=== PATIENT | male | born 1945 | race Caucasian/White ===

== ENCOUNTER → 2019-06-16 | Day surgery (SDC) | payer OTHER ==
[~2019-06-16] MED LIST: ACETAMINOPHEN 325 MG TABLET PO PRN; ACETYLCHOLINE CHLORIDE 1:100 20 MG/2 ML INTRAOCULAR KIT. IO ONE; ALBUTEROL SULFATE 2.5 MG/3 ML NEBU. NEB PRN; ATROPINE 0.5 MG/5 ML DISP.SYRIN. IV PRN; BALANCED SALT IRRIG OPHTH SOLN 15 ML BOTTLE. IRR ONE; CATARACT OPHTH GEL 0.5 ML SYRINGE. OS ONE; CHONDROIT-SOD-HYALURONATE KIT. OS ONE; EPINEPHrine AMPULE 0.5 MG in BALANCED SALT IRRIG SOLN PLUS 500 ML IO ONE; ERYTHROMYCIN 0.5% OPHTH OINTMENT 1GM TUBE. OS ONE; HYALURONATE SODIUM 20 MG/2 ML SYRINGE. ONE; HYALURONIDASE 75UNITS in LIDOCAINE 2% PF OPHTH 10 ML SYRINGE. OS ONE; IV RINGERS SOLUTION,LACTATED 1,000 ML IV SCH; KETO5DRO LEFTEYE; KETOROLAC TROMETHAMINE 0.5% OPHTH SOLUTION BOTTLE. OS SCH; LIDO/EPI IN BSS OPHTH 8 ML SYRINGE OS ONE; LOSA50TA86 PO; MOXI3DRO18 LEFTEYE; MOXIFLOXACIN 0.5% OPHTH SOLUTION 3ML BOTTLE. OS SCH; ONDANSETRON PF 4 MG/2 ML VIAL. IV PRN; POVIDONE-IODINE 5% OPHTH SOLUTION 30ML BOTTLE. OS ONE; PRED5DRO20 OD; PRED5DRO20 OS; PROPOFOL 20 ML IV ONE; RIVA20TA2 PO; SIMV40TA18 PO; TETRACAINE 0.5% OPHTH SOLUTION 4ML BOTTLE. OS ONE; TETRACAINE 0.5% OPHTH SOLUTION 4ML BOTTLE. OU ONE; diphenhydrAMINE 50 MG/ML VIAL IV PRN; prednisoLONE ACETATE 1% OPHTH SUSPENSION 5ML BOTTLE. ONE; prednisoLONE ACETATE 1% OPHTH SUSPENSION 5ML BOTTLE. OS SCH
[2019-06-16] MEDS: MOXIFLOXACIN 0.5% OPHTH SOLUTION 3ML BOTTLE. OS SCH ×3 (06:38→06:53)
--- NOTE | 2019-06-16 08:34 | PDOC4 ---
CATARACT Operative Report DATE DATE: 06/16/19 TIME: 08:28 Operation Performed Operative Report Name: Armani Dominguez Operation Date: @TD@ Preoperative Diagnosis: 1. Senile cataract, LEFT: eye. 2. Anticipated intraoperative floppy iris syndrome, LEFT: eye. Postoperative Diagnosis: 1. Senile cataract, LEFT: eye. 2. Intraoperative floppy iris syndrome, LEFT:eye. Operation: 1. Phacoemulsification with posterior chamber intraocular lens implant. Surgeon: Arthur Alford D.O. Anesthesia: Local with monitored anesthesia care. Description of Operation: With cardiac monitoring and intravenous sedation, the patient received peribulbar anesthesia in the holding area. Pressure was applied to the eye with a [place] balloon for approximately 10 minutes. The patient was taken to the operating room and placed in a supine position. The periorbital region was prepped and draped in the usual sterile fashion. A lid speculum was placed between the eyelids. The patient was positioned under the microscope. A temporal clear corneal incision was made with a keratome. Due to poor dilation, 1 cc of epi-Shugarcaine was injected into the anterior chamber. Viscoelastic was then injected into the eye. A side port incision was made three clock hours to the left of the clear corneal incision. A cystotome and capsular forceps were used to make a continuous tear capsulorhexus. Hydrodissection was performed with balanced salt solution. The phacoemulsification needle was placed into the eye and the cataract was removed. The remaining cortical material was removed with irrigation and aspiration. The posterior capsule was noted to be clean and intact. Viscoelastic was again injected into the eye, inflating the posterior capsular bag. A foldable intraocular lens was then injected into the eye, unfolding as desired, and positioned in the capsular bag. The viscoelastic was aspirated from the eye. The wound edges were hydrated with balanced salt solution. There were no wound leaks. Viscoelastic was injected over the side port and clear corneal incisions. One drop of Vigamox and one drop of prednisolone acetate were instilled into the eye. The lid speculum was removed and a pressure dressing with a Chand shield was placed over the eye. The patient was taken to the recovery room in good condition. KRISTINE ALFORD DO Jun 16, 2019 08:34
[2019-06-16 08:43] VITALS: BP 117/66
== END ==
LOC: SURG 05:57
PROVIDERS: ATTEND Ophthalmology
DX: H25.9 Unspecified age-related cataract (principal); H21.81 Floppy iris syndrome; I10 Essential (primary) hypertension; Z86.718 Personal history of other venous thrombosis and embolism; Z87.891 Personal history of nicotine dependence; Z87.39 Personal history of other diseases of the musculoskeletal system and connective tissue; Z72.89 Other problems related to lifestyle
CPT/HCPCS: 66984; J0171; J2704; V2632

== ENCOUNTER → 2019-09-03 | Outpatient (CLI) | payer OTHER ==
[~2019-09-03] MED LIST changes: -ACETAMINOPHEN 325 MG TABLET PO PRN; -ACETYLCHOLINE CHLORIDE 1:100 20 MG/2 ML INTRAOCULAR KIT. IO ONE; -ALBUTEROL SULFATE 2.5 MG/3 ML NEBU. NEB PRN; -ATROPINE 0.5 MG/5 ML DISP.SYRIN. IV PRN; -BALANCED SALT IRRIG OPHTH SOLN 15 ML BOTTLE. IRR ONE; +BUPIVACAINE MPF 0.25% 10 ML VIAL. ONE; -CATARACT OPHTH GEL 0.5 ML SYRINGE. OS ONE; -CHONDROIT-SOD-HYALURONATE KIT. OS ONE; -EPINEPHrine AMPULE 0.5 MG in BALANCED SALT IRRIG SOLN PLUS 500 ML IO ONE; -ERYTHROMYCIN 0.5% OPHTH OINTMENT 1GM TUBE. OS ONE; -HYALURONATE SODIUM 20 MG/2 ML SYRINGE. ONE; -HYALURONIDASE 75UNITS in LIDOCAINE 2% PF OPHTH 10 ML SYRINGE. OS ONE; -IV RINGERS SOLUTION,LACTATED 1,000 ML IV SCH; -KETOROLAC TROMETHAMINE 0.5% OPHTH SOLUTION BOTTLE. OS SCH; -LIDO/EPI IN BSS OPHTH 8 ML SYRINGE OS ONE; +LIDOCAINE 1% PF 30 ML VIAL. ONE; -MOXIFLOXACIN 0.5% OPHTH SOLUTION 3ML BOTTLE. OS SCH; -ONDANSETRON PF 4 MG/2 ML VIAL. IV PRN; -POVIDONE-IODINE 5% OPHTH SOLUTION 30ML BOTTLE. OS ONE; -PROPOFOL 20 ML IV ONE; -TETRACAINE 0.5% OPHTH SOLUTION 4ML BOTTLE. OS ONE; -TETRACAINE 0.5% OPHTH SOLUTION 4ML BOTTLE. OU ONE; -diphenhydrAMINE 50 MG/ML VIAL IV PRN; -prednisoLONE ACETATE 1% OPHTH SUSPENSION 5ML BOTTLE. ONE; -prednisoLONE ACETATE 1% OPHTH SUSPENSION 5ML BOTTLE. OS SCH
[2019-09-03 15:19] VITALS: BP 119/73
== END ==
LOC: SURG 14:03
PROVIDERS: ATTEND Anesthesiology Pain Medicine
DX: M79.12 Myalgia of auxiliary muscles, head and neck (principal)
CPT/HCPCS: 20552; J2001; J3490